=== PATIENT | male | born 1975 | race Caucasian/White ===

== ENCOUNTER 2016-09-29 16:33 | Emergency (ER) | payer OTHER ==
--- NOTE | ~2016-09-29 | EKG ---
PATIENT: ROSE PAT UNIT #: [id number] Ventricular Rate: 81 BPM Atrial Rate: 81 BPM P-R Interval: 174 ms QRS Duration: 106 ms Q-T Interval: 344 ms QTC Calculation(Bezet): 399 ms P [place]: 50 degrees Calculated R [place]: 19 degrees Calculated T [place]: 24 degrees Diagnosis Line: Normal sinus rhythm Diagnosis Line: Normal ECG Diagnosis Line: No previous ECGs available Diagnosis Line: Confirmed by MAT CONTRERAS MD ([id number]) on Diagnosis Line: 11/12/2016 7:01:20 AM INTERPRETING MD: JONN
--- NOTE | ~2016-09-29 | CR72 ---
[facility]. [facility] A Service of [facility] & [facility] / [facility] RADIOLOGY TEXT RESULTS PATIENT: ROSE PAT LOCATION: SED : 73 UNIT #: [id number] AGE: [address]: Vladimir Orozco MD SEX: M ORDER DR: [id number] [address] [address] [id number] E MR#: [id number] Acc #: [id number] NAME: ROSE PAT : 1975 SEX: M STUDY DATE/TIME: 09/29/2016 16:44 UNIT: SED ROOM: STUDY DESCRIPTION: CR Chest Single View Portable Attending Physician: Vladimir Orozco M.D. Ordering Physician: Vladimir Orozco M.D. Primary Care Physician: Viri Stoddard M.D. MEDICAL IMAGING REPORT This report is preliminary unless electronic signature is present. EXAM AP portable chest 09/29/2016 at 16:44 HISTORY Midsternal chest pain for 1 week, getting worse. COMPARISON None. FINDINGS Low volume inspiration. Calcified granulomatous changes in the left perihilar region and left lower lobe. No acute airspace disease. Heart size within normal limits. No pleural effusion or pneumothorax. IMPRESSION 1. Low volume inspiration. 2. No acute chest findings. 3. Benign calcified granulomatous changes. Dictated by... Zo Barcneas M.D. THIS IS AN ELECTRONICALLY VERIFIED REPORT Zo Barcenas M.D. at 09/30/2016 10:00 AM HONORIO/juan m TD: 09/30/2016 06:46 JOB #: [id number] MEDICAL IMAGING REPORT
[~2016-09-29 16:33] MED LIST: DISCONTINUED MED PO; OMEPRAZOLE40 MG PO; XANAX0.5 M1 PO
[2016-09-29 16:36] LABS: BASOPHIL# 0.1 X10e3 (0-0.3); BASOPHIL% 1.3 % (0-2.5); EOSINOPHIL# 0.1 X10e3 (0-0.7); EOSINOPHIL% 2.3 % (0.0-7.0); HEMATOCRIT 44.8 % (38.0-50.0); HEMOGLOBIN 15.5 gm/dL (13.0-16.0); LYMPHOCYTE# 1.9 X10e3 (1.0-3.5); MEAN CELL VOLUME 88.2 FL (83-96); MEAN CORPUSCULAR HEMOGLOBIN 30.4 PG (28-34); MEAN CORPUSCULAR HGB CONC 34.5 g/dL (30-36); MEAN PLATELET VOLUME 7.7 FL (6.5-11.5); MONOCYTE# 0.4 X10e3 (0-1.0); MONOCYTE% 8.2 % (3.0-12.0); NEUTROPHIL# 2.6 X10e3 (1.5-7.1); NEUTROPHIL% 51.2 % (40-75); PLATELET COUNT 185 X10e3 (140-420); RED BLOOD COUNT 5.08 X10e (3.90-5.60); WHITE BLOOD COUNT 5.1 X10e3 (4.0-10.5)
[2016-09-29 16:40] LABS: DIFF IND NO
[2016-09-29 16:46] LABS: INR 0.9; PROTHROMBIN TIME (PATIENT) 10.5 SECONDS (9.5-12.4)
[2016-09-29 16:51] LABS: POC - CKMB <1.0 ng/mL (0.0-7.9)
[2016-09-29 16:52] LABS: POC - MYOGLOBIN 32.6 ng/mL (0.0-169.0); POC - TROPONIN <0.05 ng/mL (<=0.05)
[2016-09-29 16:53] LABS: PARTIAL THROMBOPLASTIN TIME 23.5 SECONDS (25.6-38.1)
[2016-09-29 16:55] LABS: ALBUMIN SERUM 4.7 g/dL (3.5-5.0); ALKALINE PHOSPHATASE 62 U/L (32-92); ALT (SGPT) 84 U/L (10-40); AST (SGOT) 44 U/L (10-42); BILIRUBIN,TOTAL 0.6 mg/dL (0.2-2.0); BLOOD UREA NITROGEN 14 mg/dL (9-23); CALCIUM SERUM 9.8 mg/dL (8.4-10.2); CARBON DIOXIDE 26 mmol/L (22-31); CHLORIDE 99 mmol/L (100-111); CREATININE SERUM 0.8 mg/dL (0.6-1.4); GLOM FILT RATE Estimated ABOVE60 mL/min (>60); GLUCOSE FASTING 117 mg/dL (70-110); POTASSIUM 4.1 mmol/L (3.5-5.1); PROTEIN TOTAL SERUM 7.6 g/dL (6.0-8.3); SODIUM 136 mmol/L (135-145)
[2016-09-29 16:57] LABS: BILIRUBIN, DIRECT <0.1 mg/dL (0.0-0.2); BILIRUBIN,INDIRECT 0.5 mg/dL (0.0-0.9)
[2016-09-29] MEDS ORDERED: HYDROXYZINE HCL25 M1 DOB (18:02)
[2016-09-29] MEDS ORDERED: PEPCID40 MG PO (18:03)
== END 2016-09-29 18:19 | disposition home or self-care (01) ==
LOC: SED 16:33
PROVIDERS: Emergency Medicine
DX: K21.9 Gastro-esophageal reflux disease without esophagitis (principal); F41.9 Anxiety disorder, unspecified; K76.0 Fatty (change of) liver, not elsewhere classified
CPT/HCPCS: 36415; 71010; 80048; 80076; 82553; 83874; 84484; 85025; 85610; 85730; 93005; 96374; 96375; 99284; J2060